=== PATIENT | female | born 1980 | race African-American/Black ===

== ENCOUNTER 2017-02-05 17:32 | Emergency (ER) | payer OTHER ==
[2017-02-05 19:02] LABS: CARBON DIOXIDE 30.3 mmol/L (21-32); CHLORIDE SERUM 101 mmol/L (98-107); CREATININE SERUM 0.7 mg/dL (0.6-1.0); GFR1 > 60 mL/min; GLUCOSE SERUM 178 mg/dL (74-106); POTASSIUM SERUM 3.4 mmol/L (3.5-5.1); SODIUM SERUM 139 mmol/L (136-145)
[2017-02-05 19:05] LABS: PLATELET COUNT 281 x10^3mcL (130-400)
[2017-02-05 19:15] LABS: ALKALINE PHOSPHATASE 74 U/L (46-116); ALT/SGPT 21 U/L (14-59); AST/SGOT 9 U/L (15-37); BILIRUBIN TOTAL 0.9 mg/dL (0.20-1.00); MAGNESIUM 1.7 mg/dL (1.8-2.4); RED CELL DISTRIBUTION WIDTH 15.5 % (11.5-14.5); T4(THYROXINE) 7.3 ug/dL (4.7-13.3); TOTAL PROTEIN, SERUM 7.4 g/dL (6.4-8.2)
[2017-02-05 19:16] LABS: ALBUMIN 3.3 g/dL (3.4-5.0)
[2017-02-05 19:29] LABS: BAND NEUTROPHIL 2 % (0-10); BASOPHIL 1 % (0-2); METAMYELOCTE 4 % (0-2); MONOCYTE 3 % (0-7); SEGMENTED NEUTROPHILS 71 % (37-75)
[2017-02-05 19:30] LABS: PLATELET MORPHOLOGY LARGE PLATELET SEEN; rbc morphology (normal/abnorm) ABNORMAL (NORMAL)
[2017-02-05 20:30] VITALS: BP 120/70
== END 2017-02-05 20:30 | disposition home or self-care (01) ==
LOC: ED 17:32
PROVIDERS: Emergency Medicine
DX: R00.2 Palpitations (principal); L02.412 Cutaneous abscess of left axilla
CPT/HCPCS: 36415; J2001

== ENCOUNTER 2017-07-12 10:45 | Emergency (ER) | payer OTHER ==
[~2017-07-12] VITALS: Ht 167.6 cm; Wt 87.1 kg
[2017-07-12 11:32] VITALS: BP 118/74
== END 2017-07-12 11:32 | disposition home or self-care (01) ==
LOC: ED 10:45
DX: L30.8 Other specified dermatitis (principal)

== ENCOUNTER 2017-09-19 02:10 | Emergency (ER) | payer OTHER ==
[~2017-09-19] VITALS: Ht 165.1 cm; Wt 88.9 kg
[2017-09-19 02:31] VITALS: Ht 165.1 cm; Wt 88.9 kg
[2017-09-19 04:03] VITALS: BP 120/77
== END 2017-09-19 04:03 | disposition home or self-care (01) ==
LOC: ED 02:10
DX: J02.9 Acute pharyngitis, unspecified (principal)
CPT/HCPCS: J1100; J1885

== ENCOUNTER 2019-02-17 21:12 | Emergency (ER) | payer SELFPAY ==
[~2019-02-17] VITALS: Ht 167.6 cm; Wt 82.6 kg
[2019-02-17 21:21] VITALS: Ht 167.6 cm; Wt 82.6 kg
[2019-02-17 22:28] LABS: CALCIUM 8.9 mg/dL (8.5-10.1); CARBON DIOXIDE 23.6 mmol/L (21-32); CHLORIDE SERUM 107 mmol/L (98-107); CREATININE SERUM 0.7 mg/dL (0.6-1.0); GFR1 > 60 mL/min; GLUCOSE SERUM 156 mg/dL (74-106); POTASSIUM SERUM 3.4 mmol/L (3.5-5.1); SODIUM SERUM 142 mmol/L (136-145)
[2019-02-17 22:33] LABS: ALBUMIN 3.4 g/dL (3.4-5.0); ALKALINE PHOSPHATASE 74 U/L (46-116); ALT/SGPT 15 U/L (14-59); AST/SGOT 13 U/L (15-37); BILIRUBIN TOTAL 0.41 mg/dL (0.20-1.00); TOTAL PROTEIN, SERUM 7.6 g/dL (6.4-8.2)
[2019-02-17 22:41] VITALS: BP 143/74
== END 2019-02-17 23:03 | disposition home or self-care (01) ==
LOC: ED 21:12
PROVIDERS: Emergency Medicine
DX: F12.929 Cannabis use, unspecified with intoxication, unspecified (principal)
CPT/HCPCS: 36415; Q0162